=== PATIENT | male | born 1955 | race Caucasian/White ===

== ENCOUNTER → 2016-09-17 | Outpatient (CLI) | payer BC ==
[~2016-09-17] MED LIST: HCTZ 25MG TAB25 MG PO; NEURONTIN300 MG/CAP PO; NORVASC 5MG5 MG/TAB PO; PREDNISONE20 MG PO; PRINIVIL40 MG PO
== END ==
LOC: MHCPAIN 08:59
DX: G89.29 Other chronic pain (principal); M54.16 Radiculopathy, lumbar region; M53.3 Sacrococcygeal disorders, not elsewhere classified; M96.1 Postlaminectomy syndrome, not elsewhere classified
CPT/HCPCS: G0463